=== PATIENT | female | born 1945 ===

== ENCOUNTER 2023-06-18 02:27 | Outpatient (CLI) | payer MEDICARE ==
[2023-06-18] VITALS (20 sets, daily range): BP systolic 102–159; BP diastolic 49–81; PULSE 66–76
== END 2023-06-18 23:59 | disposition home or self-care (01) ==
LOC: CARD DIAG 02:27
PROVIDERS: ATTEND Internal Medicine Interventional Cardiology
DX: R55 Syncope and collapse (principal)
CPT/HCPCS: 93660